=== PATIENT | female | born 1980 | race Caucasian/White ===

== ENCOUNTER 2017-08-09 09:17 | Outpatient (CLI) ==
[2015-07-25 17:01] VITALS: BMI 29.5
--- NOTE | 2017-08-09 10:07 | MAMMO ---
EXAM: Bilateral digital diagnostic mammogram (2-D and 3-D) History: Left breast palpable abnormality. Findings: MLO and CC views of bilateral breasts demonstrate scattered fibroglandular breast parenchy ma. CAD was reviewed by the radiologist. Tomosynthesis was performed. There are no dominant masses , no suspicious microcalcifications and no architectural distortions Impression: Although no mammographic abnormalities identified, recommend left breast ultrasound for the palpable event. BIRADS 0
--- NOTE | 2017-08-09 10:20 | US ---
EXAM: Left breast ultrasound. History: Left breast palpable abnormality. Comparison: Bilateral mammogram 08/09/2017 Technique: Multiple sonographic images through the left breast were obtained. Color duplex Doppler was used to interrogate vascular flow. Findings: No masses, cysts or fluid collections identified. Impression: No sonographic evidence of malignancy. Return to routine screening mammography schedule . BIRADS 1
== END 2017-08-09 09:18 | disposition home or self-care (01) ==
LOC: RAD 09:17
PROVIDERS: ATTEND Nurse Practitioner Women's Health
DX: N63.0 Unspecified lump in unspecified breast (principal); Z80.3 Family history of malignant neoplasm of breast

== ENCOUNTER 2017-08-14 09:16 | Outpatient (CLI) ==
[2015-07-25 17:01] VITALS: BMI 29.5
--- NOTE | 2017-08-14 10:12 | US ---
EXAM: Ultrasound abdomen limited right upper quadrant HISTORY: Elevated liver enzymes COMPARISON: None TECHNIQUE: Limited ultrasound abdomen right upper quadrant was performed FINDINGS: Visualized portion pancreas appears normal. Portions of the pancreas obscured secondary t o bowel gas shadowing. Liver appears enlarged. Liver diffusely increased in echogenicity. Main por daniela vein patent with normal direction of flow. No shadowing gallstones. No gallbladder wall thicken ing or pericholecystic fluid. No biliary duct dilation with common bile duct measuring 0.5 cm. Righ t kidney measures 10.6 cm in length without hydronephrosis. IMPRESSION: 1. Hepatomegaly. Hepatic steatosis. 2. No cholelithiasis. No gallbladder wall thickening.
== END 2017-08-14 09:17 | disposition home or self-care (01) ==
LOC: RAD 09:16
PROVIDERS: ATTEND Physician Assistant
DX: R74.8 Abnormal levels of other serum enzymes (principal)

== ENCOUNTER 2017-09-04 20:49 | Emergency (ER) | payer MEDICAID, OTHER ==
[2017-09-04 20:53] VITALS: BP 134/86; TEMP 98.6; BMI 28.3
--- NOTE | 2017-09-04 23:29 | CT ---
EXAM: CT of the abdomen and pelvis with and without IV contrast. HISTORY: Abdominal pain. PROCEDURE: Contiguous axial CT images of the abdomen and pelvis with and without IV contrast with co columba and sagittal reformats. FINDINGS: There emphysematous changes in both lungs. There is diffuse fatty infiltration of the liver . The gallbladder, pancreas, spleen, adrenal glands and kidneys are normal in appearance. The abdomi nal aorta is within normal limits in diameter. The visualized loops of bowel and appendix are normal in appearance. No free fluid or free air in the abdomen or pelvis. The bladder is adequately filled with no abnormality identified. The uterus is unremarkable. The bones and soft tissues are unremarka ble. Impression: No acute findings in the abdomen or pelvis. Diffuse fatty infiltration of the liver. Chronic obstructive pulmonary disease.
[2017-09-04] MEDS ORDERED: MORPHINE 2 MG/ML SYRINGE IVP STA (23:37)
[2017-09-04] MEDS ORDERED: PHENERGAN 25 MG/ML VIAL 25 MG in SODIUM CHLORIDE 50 ML IV STA (23:37)
[2017-09-04] MEDS ORDERED: PHENERGAN 25 MG/ML VIAL ONE (23:40)
--- NOTE | 2017-09-04 23:40 | ED.PDOC ---
General ED Provider: Dr. PADMINI GLASS-ER Chief Complaint: Abdominal Pain Stated Complaint: im hurting Time Seen by Physician: 20:50 Mode of Arrival: Walk-In Information Source: Patient Exam Limitations: No limitations Primary Care Provider: SOHEILA BRINK Nursing and Triage Documentation Reviewed and Agree: Yes Reviewed sepsis parameters & appropriate labs ordered?: Yes System Inflammatory Response Syndrome: Not Applicable Sepsis Protocol: For patient's 13 years and over: Temp is 96.8 and below OR 101 and greater Pulse >90 BPM Resp >20/minute Acutely Altered Mental Status Are patient's symptoms suggestive of a new infection, such as: -Pneumonia -Skin, Soft Tissue -Endocarditis -UTI -Bone, Joint Infection -Implantable Device -Acute Abdominal Infection -Wound Infection -Meningitis -Blood Stream Catheter Infection -Unknown GI Complaint Exam - Abdominal Pain Complaint/Exam Onset: Gradual Duration: several hours Symptoms Are: Still present Initial Severity: Mild Current Severity: Moderate Location of Pain: Epigastric Radiates To: Reports: Back Character: Reports: Dull, Aching Alleviating: Reports: None Associated Signs and Symptoms: Reports: Nausea. Denies: Vaginal discharge AAA Risk Factors: Reports: None Ovarian Torsion Risk Factors: Reports: Reproductive age Surgical Obstruction Risk Factors: Reports: Colicky abdominal pain Related Surgical History: Reports: None Patient Rh Status: Negative Differential Diagnoses: Appendicitis, Bowel Obstruction, Constipation, Pancreatitis Quality Indicator For Non-Traumatic Chest Pain/Syncope: EKG Performed Review of Systems - Review Of Systems Constitutional: Reports: No symptoms Eyes: Reports: No symptoms Ears, Nose, Mouth, Throat: Reports: No symptoms Respiratory: Reports: No symptoms Cardiac: Reports: No symptoms GI: Reports: Abdominal pain : Reports: No symptoms Musculoskeletal: Reports: No symptoms Skin: Reports: No symptoms Neurological: Reports: No symptoms Endocrine: Reports: No symptoms Hematologic/Lymphatic: Reports: No symptoms All Other Systems: Reviewed and Negative Past Medical History - Past Medical History Previously Healthy: Yes Endocrine: Reports: None Cardiovascular: Reports: Hypertension Respiratory: Reports: Asthma Hematological: Reports: None Gastrointestinal: Reports: GERD Genitourinary: Reports: Kidney stones Neuro/Psych: Reports: Migraine, Anxiety, Depression, Bipolar Disorder Musculoskeletal: Reports: None Cancer: Reports: Other (KRYO SURG 2003, LESION REMOVED FROM BLADDER 2010, ) Last Menstrual Period: AUGUST 08 Other Pertinent Past Medical History: KRYO SURG 2003, LESION REMOVED FROM BLADDER 2010, - Surgical History General Surgical History: Reports: Hernia Repair ( EAR GRAFT 2012, UMBILICAL HERNIA REPAIR 2013), Other ( EAR GRAFT 2012, UMBILICAL HERNIA REPAIR 2013) - Family History Family History: Reports: Unknown - Social History Smoking Status: Current every day smoker, Heavy tobacco smoker Hx Substance Use: No Alcohol Screening: Occasionally - Immunizations Tetanus Shot up to Date: Yes Physical Exam - Physical Exam Appearance: Well-appearing, No pain distress, Well-nourished Pain Distress: Mild Eyes: CROW ENT: Ears normal Neck: Supple Respiratory: Airway patent, Breath sounds clear, Breath sounds equal, Respirations nonlabored Cardiovascular: RRR GI/: Soft, No masses, Bowel sounds normal, No Organomegaly, Tender Musculoskeletal: Normal strength, ROM intact, No edema, No calf tenderness Skin: Warm Neurological: Sensation intact, Motor intact, Reflexes intact, Cranial nerves intact, Alert, Oriented Psychiatric: Affect appropriate, Mood appropriate Interpretation - Radiology Interpretation Radiology Interpretation By: Radiologist Radiology Results: Negative Exam Interpreted: CT Scan - EKG Interpretation Time of EKG #1: 23:40 Rate: Normal Rhythm: Sinus Ectopy: None [place]: NL ST Segment: Normal Critical Care Note - Critical Care Note Total Time (mins): 0 Course - Course Hematology/Chemistry: 09/04/17 21:03 09/04/17 21:03 Orders, Labs, Meds: Lab Review 09/04/17 09/04/17 09/04/17 21:03 21:03 21:03 WBC 20.56 H RBC 4.16 L Hgb 12.9 Hct 36.0 L MCV 86.5 MCH 31.0 MCHC 35.8 H RDW Coeff of Emma 13.0 Plt Count 336 Immature Gran % (Auto) 0.4 Neut % (Auto) 67.9 Lymph % (Auto) 24.9 [place] % (Auto) 4.6 Eos % (Auto) 1.8 Baso % (Auto) 0.4 Immature Gran # (Auto) 0.1 Neut # (Auto) 14.0 H Lymph # (Auto) 5.1 H [place] # (Auto) 0.9 Eos # (Auto) 0.4 Baso # (Auto) 0.1 Sodium 139 Potassium 3.2 L Chloride 105 Carbon Dioxide 23 Anion Gap 14.2 BUN 7 Creatinine 0.70 Estimated GFR (MDRD) 94.00 BUN/Creatinine Ratio 10.00 Glucose 122 H Calcium 10.1 Total Bilirubin 0.6 AST 36 ALT 60 Alkaline Phosphatase 60 Total Creatine Kinase 115 CK-MB (CK-2) 1.3 CK-MB (CK-2) % 1.28754 Troponin I < 0.0100 Total Protein 7.9 Albumin 4.2 Globulin 3.7 Albumin/Globulin Ratio 1.14 Amylase 76 Lipase 80 H Serum , Qual Negative Urine Color Urine Clarity Urine pH Ur Specific [place] Urine Protein Urine Glucose (UA) Urine Ketones Urine Blood Urine Nitrite Urine Bilirubin Urine Urobilinogen Ur Leukocyte Esterase 09/04/17 21:15 WBC RBC Hgb Hct MCV MCH MCHC RDW Coeff of Emma Plt Count Immature Gran % (Auto) Neut % (Auto) Lymph % (Auto) [place] % (Auto) Eos % (Auto) Baso % (Auto) Immature Gran # (Auto) Neut # (Auto) Lymph # (Auto) [place] # (Auto) Eos # (Auto) Baso # (Auto) Sodium Potassium Chloride Carbon Dioxide Anion Gap BUN Creatinine Estimated GFR (MDRD) BUN/Creatinine Ratio Glucose Calcium Total Bilirubin AST ALT Alkaline Phosphatase Total Creatine Kinase CK-MB (CK-2) CK-MB (CK-2) % Troponin I Total Protein Albumin Globulin Albumin/Globulin Ratio Amylase Lipase Serum , Qual Urine Color Yellow Urine Clarity Clear Urine pH 7.0 Ur Specific [place] 1.015 Urine Protein Negative Urine Glucose (UA) Negative Urine Ketones Negative Urine Blood Negative Urine Nitrite Negative Urine Bilirubin Negative Urine Urobilinogen 0.2 Ur Leukocyte Esterase Negative Orders Category Date Time Status EKG-(ED ONLY) Stat CARDIO 09/04/17 20:51 Ordered IV [ED IV/MEDIPORT/POWERPORT] .ONCE EMERGENCY 09/04/17 22:30 Active AMYLASE Stat LAB 09/04/17 21:03 Completed CBC W/ AUTO DIFF Stat LAB 09/04/17 21:03 Completed COMPREHENSIVE METABOLIC PANEL Stat LAB 09/04/17 21:03 Completed CREATINE KINASE Stat LAB 09/04/17 21:03 Completed LIPASE Stat LAB 09/04/17 21:03 Completed SERUM Stat LAB 09/04/17 21:03 Completed TROPONIN I Stat LAB 09/04/17 21:03 Completed URINALYSIS C & S IF INDICATED Stat LAB 09/04/17 21:15 Completed 0.9 % Sodium Chloride [Saline Flush] MEDS 09/04/17 20:52 Ordered 1 syr IVF PRN PRN 0.9 % Sodium Chloride [Saline Flush] MEDS 09/04/17 22:30 Ordered 1 syr IVF PRN PRN Morphine Sulfate [Morphine 2 mg/ml Syringe] MEDS 09/04/17 23:37 Stat 2 mg IVP ONCE STA Promethazine HCl [Phenergan 25 mg/ml Vial] 25 mg MEDS 09/04/17 23:37 Ordered 0.9 % Sodium Chloride [Sodium Chloride] [address] ABDOMEN/PELVIS W/WO CONTRAS Stat RADS 09/04/17 20:52 Completed Medications Generic Name Dose Route Start Last Admin Trade Name Freq PRN Reason Stop Dose Admin Sodium Chloride 1 syr 09/04/17 20:52 Saline Flush IVF PRN PRN To flush IV Sodium Chloride 1 syr 09/04/17 22:30 Saline Flush IVF PRN PRN To flush IV Vital Signs: Temp Pulse Resp BP Pulse Ox 09/04/17 20:49 98.6 F 83 20 134/86 94 L Departure - Departure Time of Disposition: 23:40 Disposition: HOME SELF-CARE Discharge Problem: Abdominal pain Instructions: Acute Abdominal Pain (ED) Condition: Good Pt referred to PMD for follow-up: Yes IPMP verified?: No Additional Instructions: talk to your pcp [id number] about getting gb u/s and pelvic u/s Allergies/Adverse Reactions: Allergies doxycycline Adverse Reaction (Verified 07/25/15 17:01) Home Medications: Ambulatory Orders [place] Carbonate [Lithobid] 600 mg PO BID 11/18/13 Quetiapine Fumarate [Seroquel] 50 mg PO BEDTIME 11/18/13 Disposition Discussed With: Patient, Family
== END 2017-09-05 00:13 | disposition home or self-care (01) ==
LOC: ED 20:49
DX: R10.13 Epigastric pain (principal); R11.0 Nausea; I10 Essential (primary) hypertension; F17.210 Nicotine dependence, cigarettes, uncomplicated; K21.9 Gastro-esophageal reflux disease without esophagitis; Z87.442 Personal history of urinary calculi
CPT/HCPCS: 36415; 80053; 81001; 82150; 82550; 82553; 83690; 84484; 84703; 85025; 93005; 93010; 96365; 96375; 99283

== ENCOUNTER 2017-09-09 06:57 | Outpatient (CLI) ==
--- NOTE | 2017-09-09 08:56 | US ---
EXAM: Right upper quadrant abdominal ultrasound. History: Epigastric abdominal pain. Comparison: CT abdomen and pelvis 09/04/2017 Technique: Multiple sonographic images through the abdomen were obtained. Color duplex Doppler was used to interrogate vascular flow. Findings: The liver is mildly enlarged. The liver is diffusely echogenic. No focal liver lesions identified s onographically. There is antegrade flow within the main portal vein. Visualized pancreas demonstrat es no gross abnormality. No abdominal ascites. No shadowing gallstones. Common bile duct measures 0.4 cm in caliber. Gallbladder wall is not thickened. Limited visualization of the right kidney dem onstrates no evidence for hydronephrosis. Impression: 1. No acute sonographic findings. 2. Mild hepatomegaly and hepatic steatosis
== END 2017-09-09 06:58 | disposition home or self-care (01) ==
LOC: RAD 06:57
PROVIDERS: ATTEND Physician Assistant
DX: R10.13 Epigastric pain (principal)

== ENCOUNTER 2017-09-16 08:57 | Outpatient (CLI) ==
--- NOTE | 2017-09-16 09:36 | US ---
EXAM: Transvaginal pelvic ultrasound. History: Pelvic and perineal pain. Comparison: CT abdomen pelvis 09/04/2017 Technique: Multiple sonographic images through the pelvis were obtained. Color duplex Doppler was u sed to interrogate vascular flow. Findings: The uterus measures 8.6 cm x 4.4 cm x 4.8 cm. Endometrium measures 0.7 cm in thickness. No fluid in the cul-de-sac. Both ovaries are normal in size. Blood flow is documented within each ovary. No a dnexal masses. Impression: Unremarkable exam
== END 2017-09-16 08:58 | disposition home or self-care (01) ==
LOC: RAD 08:57
PROVIDERS: ATTEND Physician Assistant
DX: R10.2 Pelvic and perineal pain (principal)

== ENCOUNTER 2017-09-18 11:28 | Outpatient (CLI) | END 2017-09-18 11:29 | disposition home or self-care (01) | LOC: LAB 11:28 | PROVIDERS: ATTEND Nurse Practitioner | DX: R10.13 Epigastric pain (principal); R10.12 Left upper quadrant pain; R11.0 Nausea; Z87.11 Personal history of peptic ulcer disease | CPT/HCPCS: 87338 ==

== ENCOUNTER 2017-09-30 12:00 | Outpatient (CLI) ==
--- NOTE | 2017-09-30 13:05 | US ---
EXAM: Thyroid ultrasound History: Thyroid nodules. Technique: Multiple sonographic images through the thyroid gland were obtained. Color duplex Dopple r was used to interrogate vascular flow. Findings: The right lobe of the thyroid measures 5.0 cm x 2.6 cm x 2.2 cm demonstrates multiple nodules with th e largest being complex and measuring 1.8 cm x 1.4 cm x 1.7 cm. The thyroid isthmus measures 0.8 cm in thickness. The left lobe of the thyroid measures 4.8 cm x 2.0 cm x 2.0 cm and demonstrates a 1.1 cm complex nodu le. No extrathyroidal masses are identified. The thyroid gland is not hypervascular. Impression: 1. Enlarged multinodular thyroid gland. 2. 1.8 cm dominant complex right thyroid nodule. Tissue sampling is recommended.
== END 2017-09-30 12:01 | disposition home or self-care (01) ==
LOC: RAD 12:00
PROVIDERS: ATTEND Physician Assistant
DX: E04.1 Nontoxic single thyroid nodule (principal)

== ENCOUNTER 2017-10-16 14:42 | Outpatient (CLI) | END 2017-10-16 14:43 | disposition home or self-care (01) | LOC: LAB 14:42 | PROVIDERS: ATTEND Otolaryngology | DX: E04.1 Nontoxic single thyroid nodule (principal) | CPT/HCPCS: 36415; 84439; 84443 ==

== ENCOUNTER 2017-12-31 11:58 | Outpatient (CLI) | END 2017-12-31 11:59 | disposition home or self-care (01) | LOC: LAB 11:58 | PROVIDERS: ATTEND Physician Assistant | DX: Z51.81 Encounter for therapeutic drug level monitoring (principal) | CPT/HCPCS: 36415; 80178 ==

== ENCOUNTER 2018-01-03 08:49 | Outpatient (CLI) | END 2018-01-03 08:50 | disposition home or self-care (01) | LOC: LAB 08:49 | PROVIDERS: ATTEND Physician Assistant | DX: E55.9 Vitamin D deficiency, unspecified (principal) | CPT/HCPCS: 36415; 82306 ==

== ENCOUNTER 2018-01-07 10:51 | Outpatient (CLI) | END 2018-01-07 10:52 | disposition home or self-care (01) | LOC: LAB 10:51 | PROVIDERS: ATTEND Physician Assistant | DX: Z51.81 Encounter for therapeutic drug level monitoring (principal) | CPT/HCPCS: 36415; 80178 ==

== ENCOUNTER 2018-01-08 10:55 | Outpatient (POV) | END 2018-01-08 17:00 | LOC: OUTPT 10:55 | PROVIDERS: ATTEND Otolaryngology | DX: H90.5 Unspecified sensorineural hearing loss (principal) | CPT/HCPCS: 92557; 92567 ==

== ENCOUNTER 2018-02-17 12:51 | Outpatient (CLI) ==
[2018-02-17] MEDS: ALBUTEROL 0.083% NEB NEB STA (13:11)
== END 2018-02-17 12:52 | disposition home or self-care (01) ==
LOC: CAR 12:51
PROVIDERS: ATTEND Physician Assistant
DX: R06.00 Dyspnea, unspecified (principal)

== ENCOUNTER 2018-04-02 14:54 | Outpatient (CLI) ==
--- NOTE | 2018-04-03 08:22 | DI ---
EXAM: Chest two views HISTORY: Chronic obstructive pulmonary disease COMPARISON: 08/11/2009 TECHNIQUE: Two views of the chest were performed FINDINGS: Mild interstitial reticulation , likely relates to emphysematous change. There is no pleu ral effusion or pneumothorax. The heart is normal in size. The mediastinal contour is normal. Ther e are no acute abnormalities of the bones. IMPRESSION: 1. No acute cardiopulmonary process. 2. Mild interstitial reticulation, likely relates to emphysematous change.
== END 2018-04-02 14:55 | disposition home or self-care (01) ==
LOC: RAD 14:54
PROVIDERS: ATTEND Physician Assistant
DX: J44.9 Chronic obstructive pulmonary disease, unspecified (principal)

== ENCOUNTER 2018-04-14 12:06 | Outpatient (CLI) ==
--- NOTE | 2018-04-14 12:51 | DI ---
EXAM: RIGHT SHOULDER HISTORY: Shoulder pain FINDINGS: Right shoulder three-view. Bone and joint structures are within normal limits. There is no joint dislocation or fracture identified. Bone density and soft tissues are unremarkable. IMPRESSION: Within normal limits.
--- NOTE | 2018-04-14 13:29 | DI ---
EXAM: CERVICAL SPINE, 3 VIEWS HISTORY: Neck pain. FINDINGS: There is either subtle scoliosis convex toward the left at the cervical thoracic junction versus patient positioning. General bone density appears normal. Mild degenerative disc disease at C4-C6 including posterior osteophytic spurring. There is no fracture or noticeable loss of vertebral body height. No spondylolisthesis. Facet arthropathy of the lower spine. IMPRESSION: 1. Early degenerative disc and facet disease. Questionable mild scoliosis.
== END 2018-04-14 12:07 | disposition home or self-care (01) ==
LOC: RAD 12:06
PROVIDERS: ATTEND Physician Assistant
DX: M25.511 Pain in right shoulder (principal); M54.2 Cervicalgia

== ENCOUNTER 2018-10-25 11:17 | Emergency (ER) ==
[2018-10-25 11:24] VITALS: BP 149/94; BMI 27.4
[2018-10-25 11:34] VITALS: TEMP 97.2
[2018-10-25 12:26] LABS: URINE PREGNANCY TEST NEGATIVE (NEGATIVE)
[2018-10-25] MEDS ORDERED: ZOFRAN 4 MG/2 ML IM STA (12:29)
--- NOTE | 2018-10-25 13:01 | CT ---
EXAM: CT head without contrast HISTORY: Trauma COMPARISON: Cervical spine CT from today TECHNIQUE: Helical axial CT of the head was performed without contrast. Coronal and sagittal reconst ructions were performed. FINDINGS: There is no acute intracranial abnormality. There is no hemorrhage, mass, midline shift, abnormal ex tra-axial fluid collection, hydrocephalus or evolving ischemia. The dey-white matter junction is wel l maintained. There is no evidence of intravascular clot. Incidentally noted is a justen cisterna magna in the posterior fossa which is a normal variant. Brain parenchyma, ventricles and sulci are normal . There are no acute calvarial lesions. Visualized orbits and globes are unremarkable. The mastoid ai r cells demonstrate no significant soft tissue opacification. The visualized paranasal sinuses show n o air-fluid levels. There is trace calcific atherosclerosis. IMPRESSION: 1. No acute post traumatic intracranial abnormality is identified.
--- NOTE | 2018-10-25 13:04 | CT ---
EXAM: CT scan of the chest without contrast HISTORY: Trauma TECHNIQUE: Helical imaging of the chest was performed without contrast. 5 mm thin axial images and coronal and sagittal reconstructions were provided for interpretation. FINDINGS: The heart is normal size. No mediastinal abnormalities are seen. Lungs are clear. Emphy sematous changes are seen within the lungs. There is no pleural separation. The osseous structures appear within normal limits. IMPRESSION: No acute traumatic abnormalities are seen within the thorax. Pulmonary emphysema.
--- NOTE | 2018-10-25 13:05 | CT ---
EXAM: CT cervical spine without contrast. TECHNIQUE: Axial CT of the cervical spine was performed without contrast with coronal and sagittal r econstructions. HISTORY: Trauma and neck pain COMPARISON: CT head from today FINDINGS: There is no acute fracture or subluxation. Alignment of the cervical spine is anatomic. There is no acute bony effacement of the canal or the foramina. The dens is intact. The craniocervi peng junction is anatomically aligned. The visualized portion of the temporal bones is normal. The facets are properly aligned. There is no evidence for transverse or spinous process fracture. The lamina are intact. There is minimal degenerative change. 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 There are no upper thoracic posterior rib fractures. There is no apical pneumothorax. There are no acute soft tissue abnormalities. The prevertebral soft tissues are normal thickness. Visualized int racranial contents show no acute abnormality. There is advanced emphysema in the upper lung pablo. IMPRESSION: 1. No acute abnormality in the cervical spine. 2. 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 3. Emphysema.
--- NOTE | 2018-10-25 13:08 | CT ---
EXAM: CT of the abdomen pelvis without contrast. History: Abdominal and pelvic trauma. Comparison: CT abdomen and pelvis 09/04/2017 Technique: Multiplanar CT images through the abdomen pelvis were obtained without the administration of IV contrast Findings: There is motion artifact which limits evaluation. Lung bases are generally clear. Evalua tion for fracture is limited due to the motion artifact especially involving the ribs. Severe diffuse fatty infiltration of the liver. No gallstones identified by CT. Spleen is unremarka ble. No renal stones and no hydronephrosis. No peripancreatic inflammation. Adrenal glands are unr emarkable. No bowel obstruction. No free air and no ascites. The appendix is normal. No bladder w all thickening. Adnexal structures appear appropriate for patient's age. No perirectal inflammation . Impression: 1. No acute intra-abdominal or pelvic process is identified within limitations of the motion artifac t. 2. Severe fatty infiltration of the liver
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
== END 2018-10-25 14:10 | disposition home or self-care (01) ==
LOC: ED 11:17
DX: S09.90XA Unspecified injury of head, initial encounter (principal); S19.9XXA Unspecified injury of neck, initial encounter; K76.0 Fatty (change of) liver, not elsewhere classified; E87.6 Hypokalemia; I10 Essential (primary) hypertension; R53.81 Other malaise; V86.55XA Driver of 3- or 4- wheeled all-terrain vehicle (ATV) injured in nontraffic accident, initial encounter; Z79.899 Other long term (current) drug therapy; F17.210 Nicotine dependence, cigarettes, uncomplicated
CPT/HCPCS: 36415; 80053; 80074; 80306; 81001; 81025; 83605; 84145; 85025; 86617; 87040; 87798; 93005; 93010; 96372; 99283